=== PATIENT | female | born 1955 | race Caucasian/White ===

== ENCOUNTER 2017-12-07 06:50 | Day surgery (SDC) | payer MEDICARE ==
[2017-12-03 08:05] VITALS: BMI 32.2
--- NOTE | 2017-12-05 02:21 | HP ---
REASON FOR ADMISSION: Left heart catheterization, possible angioplasty, chest pain. BRIEF CLINICAL HISTORY: This is a 62-year-old female with past medical history significant for borderline hypertension, depression, anxiety disorder, complaining of chest pain. The patient reports when carry weight she feels the chest pain. Patient underwent stress test that was abnormal, so patient is scheduled for elective cardiac cath and possible angioplasty. PAST MEDICAL HISTORY: Significant for anxiety disorder, borderline hypertension. SOCIAL HISTORY: Denies smoking. Denies any history of alcohol abuse. CURRENT MEDICATIONS: Patient is taking baby aspirin 81 mg daily, Risperdal 1 mg daily at bedtime and 0.5 mg in the morning, Remeron 7.5 mg at p.m. CARDIAC WORKUP: As follows, patient had a stress test dated 02/12/2017 that showed probably abnormal myocardial perfusion study, reversible apical defect suspicious for ischemia, dated 02/12/2017. Patient also had echocardiography done on 02/16/2017 that showed ejection fraction of 73%, diastolic dysfunction, trace mitral regurgitation, trace tricuspid regurgitation. EKG shows normal sinus, poor RR progression. REVIEW OF SYSTEMS: As per HPI. PHYSICAL EXAMINATION: VITAL SIGNS: As follows; height of the patient 5 feet 4 inches, weight of the patient 188 pounds, body mass index 32.3 kg/m2. Rest of the examination, heart rate 80, blood pressure 120/80. HEENT: PERRLA. Extraocular muscles are intact. NECK: Supple. No carotid bruits or thyromegaly. CHEST: Clear to auscultation. HEART: S1 and S2 regular. ABDOMEN: Soft. EXTREMITIES: Clubbing and cyanosis negative. LABORATORY DATA: Blood workup pending. IMPRESSION: Abnormal stress test dated 02/12/2017, preserved left ventricular function, mild mitral regurgitation, mild tricuspid regurgitation. RECOMMENDATION: We will give aspirin and Plavix. Risks, benefits and alternatives were discussed with the patient. Patient is agreeable to proceed for cardiac catheterization. Further recommendation after cardiac catheterization. We will follow with you. Thank you, Dr. Jurado, for providing us the opportunity in taking care of the patient, Mirna Lowry. Madison Morse MD
[2017-12-07 07:22] LABS: BASO # 0.03 K/mm3 (0.0-2.0); BASO % 0.4 % (0.0-3.0); EOS # 0.2 (0.0-0.7); EOS % 2.7 % (1.5-5.0); GRAN # 3.66 (1.4-6.5); GRAN % 49.9 % (50.0-68.0); LYMPH # 2.9 (1.2-3.4); MEAN CELL VOLUME 90.1 fl (80.0-105.0); MEAN CORPUSCULAR HEMOGLOBIN 29.4 pg (25.0-35.0); MEAN CORPUSCULAR HGB CONC 32.6 g/dl (31.0-37.0); MEAN PLATELET VOLUME 8.5 fl (7.0-11.0); MONO # 0.6 (0.1-0.6); RBC 4.77 10^6/uL (3.5-6.1); RED CELL DISTRIBUTION WIDTH 13.5 % (11.5-14.5); WHITE BLOOD COUNT 7.3 10^3/ul (4.5-11.0)
[2017-12-07 07:31] LABS: BLOOD UREA NITROGEN 13 mg/dL (7-21); CALCIUM 9.2 mg/dL (8.4-10.5); GFR NON-AFRICAN AMERICAN > 60; HDL CHOLESTEROL 51 mg/dL (29-60)
[2017-12-07 07:35] LABS: INR 0.95; PARTIAL THROMBOPLASTIN TIME 29.4 Seconds (25.1-36.5); PROTHROMBIN TIME 10.9 SECONDS (9.4-12.5)
[2017-12-07 07:42] LABS: LDL CHOLESTEROL 100 mg/dL (0-129)
[2017-12-07] MEDS ORDERED: Lidocaine PF 2% (5 ml) Inj (For Cardiac Arrhy) ONE ×2 (08:41→08:43)
[2017-12-07] MEDS ORDERED: Verapamil 0 ML ONE (08:41)
[2017-12-07] MEDS ORDERED: Nitroglycerin 50mg in D5W 0 MG/0 ML BOTTLE IV ONE (08:41)
[2017-12-07] MEDS ORDERED: Midazolam 2 MG/2 ML VIAL ONE (09:00)
--- NOTE | 2017-12-07 09:47 | CARD ---
APPROVED REPORT Date of service: 12/07/2017 EKG Measurement Heart [id number] <Conclusion> Normal sinus rhythm NSSTW changes PRWP
--- NOTE | 2017-12-07 10:05 | CPOSTOP ---
DATE: 12/07/2017 CARDIOVASCULAR LAB POSTPROCEDURE NOTE DICTATING PHYSICIAN: Madison Morse MD. GAMEROOM TECHNICIAN: Fareed Carter, it help desk technician. TYPE OF ANESTHESIA: Moderate conscious sedation. Total 2 mg of Versed, 100 of fentanyl given periodically started at 1 mg of Versed, 50 of fentanyl. PRE-PROCEDURE DIAGNOSES: Chest pain, unstable angina, abnormal stress test. PROCEDURE PERFORMED: Left heart catheterization. FINDINGS: Nonobstructive coronary artery disease, LAD 55% stenosis. FINAL DIAGNOSIS: Nonobstructive coronary artery disease. POST-PROCEDURE PATIENT CONDITION: Stable. VASCULAR ACCESS SITE: Right femoral artery. CLOSURE DEVICE: Mynx. TOTAL RADIATION DOSE: 3316.17 milligray unit. TOTAL FLUORO TIME: 1.6 minutes. Madison Morse MD
[2017-12-07 10:06] VITALS: TEMP 97.6
[2017-12-07 12:50] VITALS: RESP 18
[2017-12-07] MEDS ORDERED: Sodium Chloride 0.9% 1,000 ML IV SCH (14:00)
[2017-12-07 14:24] LABS: BLOOD UREA NITROGEN 11 mg/dL (7-21); CALCIUM 8.8 mg/dL (8.4-10.5); GFR NON-AFRICAN AMERICAN > 60
[2017-12-07 16:08] VITALS: BP 112/70; PULSE 67; O2SAT 98
--- NOTE | 2017-12-07 16:32 | CARD ---
APPROVED REPORT Date of service: 12/07/2017 Procedure(s) performed: Left Heart Catheterization HISTORY The patient is a 62 year-old female with a history of : most recent EF: 65%. (EF Method: ), tobacco history() : The patient is a current smoker , had an abnormal stress test, apical ischemia. INDICATION The indication(s) include : positive stress test, chest pain. CASE TECHNIQUE The patient was brought electively to the Cardiac Catheterization Laboratory in a fasting state and was prepped and draped in a sterile manner. The right femoral groin was infiltrated with 2% Lidocaine subcutaneous anesthesia. A 6 Fr x 11 cm Demetria sheath was inserted into the right femoral artery without difficulty. Coronary angiography was performed using coronary diagnostic catheters. The left coronary system was accessed and visualized with a Diagnostic ,6 Fr JL 4 catheter. The right coronary system was accessed and visualized with a Diagnostic ,6 Fr JR 4 catheter. The left ventricle was accessed and visualized with a 6 Fr Pigtail catheter. Left ventricular/Aortic Valve gradient assessed on pullback. Left ventriculogram was performed in HARTMAN projection. Closure device was deployed with a 6 Fr / 7 Fr MynxGrip without any complications. The patient tolerated the procedure well and there were no complications associated with the procedure. Vessel Analysis The patient's coronary anatomy is right dominant. The left main coronary artery is a medium size vessel with intimal irregularities. The left main bifurcates to the left anterior descending and circumflex. The left anterior descending artery is a medium size vessel with diffuse calcification noted throughout this vessel and without significant stenosis. There is a 50-55% stenosis in the Very distal segment. Diffusely diseased like athread, but no focal non flow limiting diseased The first diagonal branch is a small size vessel with diffuse calcification noted throughout this vessel and without significant stenosis. The second diagonal branch is a small size vessel with diffuse calcification noted throughout this vessel and without significant stenosis. The circumflex artery is a medium size vessel with intimal irregularities. Very tortous The first obtuse marginal branch is a large size vessel with intimal irregularities. Very tortous The right coronary artery is a large size vessel with intimal irregularities and without significant stenosis. The right posterior descending artery is a medium size vessel with diffuse calcification noted throughout this vessel and without significant stenosis. The right posterolateral branch is a small size vessel with diffuse calcification noted throughout this vessel and without significant stenosis. Left Ventricle The left ventricle is normal in size with normal contractility. There was no cardiomyopathy. The left ventricular ejection fraction is estimated to be 65%. The left ventricular end diastolic pressure is 15 mmHg. There was no gradient across the aortic valve upon pullback. Conclusion Non Obstructive CAD limited to Very Distal LAD Diffusely Diseased 550-55%, but non Focal non Flow limiting. Preserved LV Fx. EF-65%, EDP-15 mmof Hg. Recommendations Smoking Cessation Aggressive Medical TherapyCardiac Risk Reduction Program Weight Loss Reduction Program CC; / Adrien / Antonio
== END 2017-12-07 15:55 | disposition home or self-care (01) ==
LOC: SDSVAS 06:50
PROVIDERS: ATTEND Internal Medicine Cardiovascular Disease
DX: I25.110 Atherosclerotic heart disease of native coronary artery with unstable angina pectoris (principal); I08.1 Rheumatic disorders of both mitral and tricuspid valves; F17.200 Nicotine dependence, unspecified, uncomplicated; R03.0 Elevated blood-pressure reading, without diagnosis of hypertension; F41.9 Anxiety disorder, unspecified; F32.9 Major depressive disorder, single episode, unspecified; Z79.82 Long term (current) use of aspirin
CPT/HCPCS: 36415; 80048; 80061; 85025; 85610; 85730; 86850; 86900; 93005; 93458; 99152; C1760; C1769; C2629; J1644; J2250; J3010; J7040; Q9967

== ENCOUNTER 2018-03-22 16:26 | Outpatient (CLI) | payer MEDICARE | END 2018-03-22 16:27 | disposition home or self-care (01) | LOC: RAD 16:26 ==

== ENCOUNTER 2018-05-13 16:22 | Outpatient (CLI) | payer MEDICARE, OTHER | END 2018-05-13 16:23 | disposition home or self-care (01) | LOC: RAD 16:22 ==

== ENCOUNTER 2018-05-21 12:54 | Outpatient (CLI) | payer MEDICARE, SELFPAY | END 2018-05-21 12:55 | disposition home or self-care (01) | LOC: RAD 12:54 ==